=== PATIENT | female | born 1955 | race African-American/Black ===

== ENCOUNTER 2020-07-09 15:28 | Emergency (ER) | payer SELFPAY ==
--- OUTSIDE RECORDS SUMMARY | 2020-07-09 15:30 | XMS REPORT | Continuity of Care Document ---
:1955 Author Organization [facility] t Address [address] [place] [address] Care Team Providers Name Role Phone Gopal Myers DO Attending Clinician Deedee Antoine MD Attending Clinician Problems This patient has no known problems. Allergies, Adverse Reactions, Alerts This patient has no known allergies or adverse reactions. Medications This patient has no known medications. Procedures This patient has no known procedures. Encounters Start End Encounter Admission Attending Care Care Encounter Source Date/Time Date/Time Type Type Clinicians Facility Department ID 2020-06-09 2020-06-09 Patient Louis [facility] [id number] 00:00:00 00:00:00 Outreach Gopal MCGRAW [id number] Yon [facility] [id number] [facility] [id number] 2020-04-07 2020-04-07 Telephone REMA Antoine [id number] 00:00:00 00:00:00 [facility] [id number] [facility] [id number] 2020-03-27 2020-03-27 Case DENICE Antoine [id number] 00:00:00 00:00:00 [facility] [id number] Professio [phone] [address] [address] 2020-03-25 2020-03-25 Refill DENICE Antoine [id number] 00:00:00 00:00:00 [facility] [id number] [place] [id number] Professio [phone] [address] 2020-03-21 2020-03-21 Office DENICE Antoine [id number] 12:53:01 13:33:36 Visit [facility] [id number] [place] [id number] Professio [phone] [place] [id number] [address] Results This patient has no known results.
--- NOTE | 2020-07-09 16:40 | ER ---
Nurse's Notes [facility] Name: Matthew Locke Age: 65 yrs Sex: Female : 1955 Arrival Date: 07/09/2020 Time: 15:28 Bed Waiting Private MD: Diagnosis: Presentation: 07/09 15:32 Chief complaint: Patient states: Been having this panic attacks for a week now. Been ca1 having them since my daughter on 06/27/2020 but it has been getting worse and worse since I buried her. Been cleaning her apartment today. With the attacks, I get SOB, my heart racing, a little dizzy, and nauseous. Denies chest pain. Coronavirus screen: Client denies travel out of the [place] in the last 14 days. At this time, the client does not indicate any symptoms associated with coronavirus-19. Ebola Screen: Patient negative for fever greater than or equal to 101.5 degrees Fahrenheit, and additional compatible Ebola Virus Disease symptoms Patient denies exposure to infectious person. Patient denies travel to an Ebola-affected area in the 21 days before illness onset. No symptoms or risks identified at this time. Initial Sepsis Screen: Does the patient meet any 2 criteria? No. Patient's initial sepsis screen is negative. Does the patient have a suspected source of infection? No. Patient's initial sepsis screen is negative. Risk Assessment: Do you want to hurt yourself or someone else? Patient reports no desire to harm self or others. Onset of symptoms was July 09, 2020. 15:32 Method Of Arrival: Ambulatory ca1 15:32 Acuity: YOSEF 3 ca1 Historical: - Allergies: 15:41 No Known Allergies; ca1 - Home Meds: 15:41 None [Active]; ca1 - PMHx: 15:41 Hypertension; ca1 - PSHx: 15:41 None; ca1 - Immunization history:: Flu vaccine is not up to date. - Social history:: Smoking status: Patient denies any tobacco usage or history of. Assessment: 16:39 Reassessment: Pt states, " I am just going, I know this is just anxiety. This happened ca1 too 18 years ago when my . I got a doctor's appointment Tuesday". Vital Signs: 15:32 BP 183 / 83; Pulse 96; Resp 18 S; Temp 97.6(TE); Pulse Ox 99% on R/A; Weight 81.65 kg ca1 (R); Height 5 ft. 1 in. (154.94 cm) (R); Pain 0/10; 15:32 Body Mass Index 34.01 (81.65 kg, 154.94 cm) ca1 ED Course: 15:28 Patient arrived in ED. as 15:40 Triage completed. ca1 15:41 Arm band placed on right wrist. ca1 Administered Medications: No medications were administered Outcome: 16:40 Patient left the ED. ca1 Signatures: Mikayla Marino Cheryl RN RN ca1 Corrections: (The following items were deleted from the chart) 15:41 15:32 Chief complaint: Patient states: Been having this panic attacks for a week now. ca1 Been having them since my daughter on 06/27/2020 but it has been getting worse and worse since I buried her. Been cleaning her apartment today. With the attacks, I get SOB, my heart racing, a little dizzy, and nauseous. ca1
[2020-07-09 16:44] VITALS: BP 183/83; TEMP 97.6; O2SAT 99
== END 2020-07-09 16:40 | disposition left against medical advice (07) ==
LOC: ER 15:28
DX: Z02.9 Encounter for administrative examinations, unspecified (principal)
CPT/HCPCS: 99281

== ENCOUNTER 2024-06-13 01:32 | Emergency (ER) | payer OTHER, SELFPAY ==
[2024-06-13 02:11] LABS: Absolute Basophils 0.1 K/uL (0-0.5); Absolute Eosinophils 0.2 K/uL (0-0.5); Absolute Lymphocytes (CBC) 3.1 K/uL (0.7-4.9); Absolute Monocytes 0.5 K/uL (0.1-1.3); Absolute Neutrophil 1.9 K/uL (1.8-8.0); Basophils % 1.1 % (0-1.3); Eosinophils % 3.2 % (0-4.4); Hemoglobin 13.3 g/dL (12.0-15.0); Lymphocytes % 53.3 % (15.3-44.8); MCH 25.7 pg (27.0-35.0); MCHC 32.5 g/dL (32.0-36.0); MCV 79.3 fL (80-100); MPV 7.3 fL (7.6-11.3); Monocytes % 9.3 % (3.3-12.3); Neutrophils % 33.1 % (41.7-73.7); Nucleated Red Blood Cells % 0.1 % (0-0); Platelets 321 thou/uL (152-406); RBC Red Blood Cell Count 5.17 M/uL (3.86-4.86); Red Cell Distribution Width 15.5 % (12.1-15.2)
[2024-06-13 02:20] LABS: Protime INR 0.96
[2024-06-13 02:27] LABS: ALT/SGPT 34 U/L (13-56); AST/SGOT 18 U/L (15-37); Albumin 3.3 g/dL (3.4-5.0); Albumin/Globulin Ratio 0.7 (1.1-1.8); Alkaline Phosphatase 120 U/L (45-117); Anion Gap 7.7 mEq/L (5.0-15.0); BUN Blood Urea Nitrogen 19 mg/dL (7-18); Bicarbonate 27 mEq/L (21-32); Bilirubin Total 0.3 mg/dL (0.2-1.0); Globulin 4.9 g/dL (2.3-3.5); Glomerular Filtration Rate 64 ml/min (=/>90); Glucose Level 107 mg/dL (74-106); Magnesium 2.2 mg/dL (1.6-2.4); NT PRO-BNP 106 pg/mL (<125); Potassium 3.7 mEq/L (3.5-5.1); Protein, Total 8.2 g/dL (6.4-8.2); Sodium Level 139 mEq/L (136-145)
[2024-06-13 02:31] LABS: Bilirubin Direct < 0.2 mg/dL (0-0.2); Bilirubin Indirect, Calculated 0.1 mg/dL (0.2-0.8)
--- NOTE | 2024-06-13 05:00 | EDPHYS ---
Physician Documentation [facility] Name: Matthew Locke Age: 69 yrs Sex: Female : 1955 Arrival Date: 06/13/2024 Time: 01:32 Bed 4 Private MD: ED Physician Wilson Vidal HPI: 06/13 01:45 This 69 yrs old Black Female presents to ER via Unassigned with complaints of Irregular sp4 Pulse. 06/14 00:35 Patient presents with several days of palpitations.. sp4 Historical: - Allergies: 06/13 01:54 No Known Allergies; br2 - PMHx: 01:54 Hypertension; br2 - Immunization history:: Adult Immunizations not up to date. - Infectious Disease History:: Denies. - Social history:: Smoking status: Patient denies any tobacco usage or history of. - Family history:: not pertinent. ROS: 06/14 00:35 Constitutional: Negative for fever, chills, and weight loss, positive palpitations and sp4 irregular heart rate. All other systems are negative, Exam: 00:35 Constitutional: This is a well developed, well nourished patient who is awake, alert, sp4 and in no acute distress. Head/Face: Normocephalic, atraumatic. Eyes: Pupils equal round and reactive to light, extra-ocular motions intact. Lids and lashes normal. Conjunctiva and sclera are not injected. Cornea within normal limits. Periorbital areas with no swelling, redness, or edema. ENT: Nares patent. No nasal discharge, no septal abnormalities noted. Tympanic membranes are normal and external auditory canals are clear. Oropharynx with no redness, swelling, or masses, exudates, or evidence of obstruction, uvula midline. Mucous membranes moist. Neck: Trachea midline, no thyromegaly or masses palpated, and no cervical lymphadenopathy. Supple, full range of motion without nuchal rigidity, or vertebral point tenderness. Chest/axilla: Normal chest wall appearance and motion. Nontender with no deformity. No lesions are appreciated. Cardiovascular: Regular rate and rhythm with a normal S1 and S2. No gallops, murmurs, or rubs. Normal PMI, no JVD. No pulse deficits. Respiratory: Lungs have equal breath sounds bilaterally, clear to auscultation and percussion. No rales, rhonchi or wheezes noted. No increased work of breathing, no retractions or nasal flaring. Abdomen/GI: Soft, with normal bowel sounds. No distension or tympany. No guarding or rebound. No evidence of tenderness throughout. Back: No spinal tenderness. No costovertebral tenderness. Skin: Warm, dry with normal turgor. Normal color with no rashes, no lesions, and no evidence of cellulitis. MS/ Extremity: Pulses equal, no cyanosis. Neurovascular intact. Full, normal range of motion. Neuro: Awake and alert, GCS 15, oriented to person, place, time, and situation. Cranial nerves II-XII grossly intact. Motor strength 5/5 in all extremities. Sensory grossly intact. Psych: Awake, alert, with orientation to person, place and time. Behavior, mood, and affect are within normal limits 00:35 ECG was reviewed by the Attending Physician. Premature atrial contractions otherwise normal Vital Signs: 06/13 01:52 BP 158 / 97; Pulse 84; Resp 18; Temp 97.3(TE); Pulse Ox 100% on R/A; Weight 81.65 kg; br2 Height 5 ft. 1 in. ; Pain 7/10; 02:00 BP 153 / 90; Pulse 91; Resp 16; Pulse Ox 99% on R/A; dd2 02:30 BP 148 / 84; Pulse 78; Resp 16; Pulse Ox 100% on R/A; dd2 03:00 BP 148 / 85; Pulse 84; Resp 17; Pulse Ox 99% on R/A; dd2 04:00 BP 165 / 97; Pulse 78; Resp 16; Pulse Ox 98% on R/A; dd2 01:52 Body Mass Index 34.01 (81.65 kg, 154.94 cm) br2 01:52 Pain Scale: Adult br2 Abdias Coma Score: 06/14 00:35 Eye Response: spontaneous(4). Motor Response: obeys commands(6). Verbal Response: sp4 oriented(5). Total: 15. MDM: 06/13 02:15 Medical Screening Exam initiated sp4 06/14 00:37 Differential diagnosis: arrythmia, dehydration, stress disorder. Data reviewed: vital sp4 signs, nurses notes, lab test result(s), EKG, radiologic studies, plain films. Consideration of Admission/Observation Escalation of care including admission/observation considered. ED course: Stable for discharge home workup today is unremarkable except for premature atrial contractions. Advised follow-up with crane follower.. 06/13 01:45 Order name: Basic Metabolic Panel; Complete Time: 04:48 sp4 06/13 01:45 Order name: CBC with Diff; Complete Time: 04:48 sp4 06/13 01:45 Order name: LFT's; Complete Time: 04:48 sp4 06/13 01:45 Order name: Magnesium; Complete Time: 04:48 sp4 06/13 01:45 Order name: NT PRO-BNP; Complete Time: 04:48 sp4 06/13 01:45 Order name: PT-INR; Complete Time: 04:48 sp4 06/13 01:45 Order name: Troponin HS; Complete Time: 04:48 sp4 06/13 01:45 Order name: XRAY Chest (1 view) 4 06/13 01:45 Order name: Cardiac monitoring; Complete Time: 58 sp4 06/13 01:45 Order name: EKG - Nurse/Tech; Complete Time: 58 sp4 06/13 01:45 Order name: IV Saline Lock; Complete Time: :58 sp4 06/13 01:45 Order name: Labs collected and sent; Complete Time: 58 sp4 06/13 01:45 Order name: O2 Per Protocol; Complete Time: 58 sp4 06/13 01:45 Order name: O2 Sat Monitoring; Complete Time: :58 4 EC/12 01:52 Rate is 70 beats/min. Rhythm is irregular, Normal Sinus Rhythm with PACs. QRS [place] is sp4 Normal. DC interval is normal. QRS interval is normal. QT interval is normal. No Q waves. T waves are Normal. No ST changes noted. Clinical impression: No evidence of ischemia. Interpreted by me. Reviewed by me. Administered Medications: No medications were administered Disposition: 06/14 00:38 Chart complete. sp4 Disposition Summary: 06/13/24 05:00 Discharge Ordered Notes: Location: Home sp4 Problem: new sp4 Symptoms: have improved sp4 Condition: Stable sp4 Diagnosis - Palpitations sp4 - Premature atrial contractions sp4 Followup: sp4 - With: Private Physician - When: 5 - 6 days - Reason: Recheck today's complaints Discharge Instructions: - Discharge Summary Sheet sp4 - Palpitations, [id number] sp4 Forms: - Patient Portal Instructions sp4 Signatures: Dispatcher [employer] Wilson Agustin MD MD sp4 Jessica Allison RN RN br2 Corrections: (The following items were deleted from the chart) 06/13 01:46 01:46 BASIC METABOLIC PANEL+C.LAB.BRZ ordered. EDMS EDMS 01:46 01:46 CBC+H.LAB.BRZ ordered. EDMS EDMS 01:46 01:46 HEPATIC FUNCTION+C.LAB.BRZ ordered. EDMS EDMS 01:46 01:46 MAGNESIUM+C.LAB.BRZ ordered. EDMS EDMS 01:46 01:46 PROBNP+C.LAB.BRZ ordered. EDMS EDMS 01:46 01:46 PROTIME (+INR)+COAG.LAB.BRZ ordered. EDMS EDMS 01:46 01:46 Troponin High Sensitivity+C.LAB.BRZ ordered. EDMS EDMS 01:46 01:46 Chest Single View+RAD.RAD.BRZ ordered. EDMS EDMS
--- NOTE | 2024-06-13 05:00 | ER ---
Nurse's Notes [facility] Name: Matthew Locke Age: 69 yrs Sex: Female : 1955 Arrival Date: 06/13/2024 Time: 01:32 Bed 4 Private MD: Diagnosis: Palpitations;Premature atrial contractions Presentation: 06/13 01:52 Chief complaint: Patient states: PT STATES HER "A-FIB" IS ACTING UP, CAN FEEL A br2 FLUTTER. C/O SOB AND NAUSEA FOR 2 DAYS. Coronavirus screen: Client denies travel out of the [place] in the last 14 days. Ebola Screen: Patient denies exposure to infectious person. Initial Sepsis Screen: Does the patient meet any 2 criteria? No. Patient's initial sepsis screen is negative. Does the patient have a suspected source of infection? No. Patient's initial sepsis screen is negative. Risk Assessment: Do you want to hurt yourself or someone else? Patient reports no desire to harm self or others. Onset of symptoms was June 11, 2024. 01:52 Method Of Arrival: Ambulatory br2 01:52 Acuity: YOSEF 3 br2 Triage Assessment: 01:54 General: Appears in no apparent distress. comfortable, Behavior is calm, cooperative. br2 Pain: Complains of pain in chest Pain currently is 7 out of 10 on a pain scale. Cardiovascular: Reports nausea, palpitations, shortness of breath. Respiratory: Reports shortness of breath at rest on exertion. GI: No signs and/or symptoms were reported involving the gastrointestinal system. : No signs and/or symptoms were reported regarding the genitourinary system. Derm: No signs and/or symptoms reported regarding the dermatologic system. Musculoskeletal: No signs and/or symptoms reported regarding the musculoskeletal system. Historical: - Allergies: 01:54 No Known Allergies; br2 - PMHx: 01:54 Hypertension; br2 - Immunization history:: Adult Immunizations not up to date. - Infectious Disease History:: Denies. - Social history:: Smoking status: Patient denies any tobacco usage or history of. - Family history:: not pertinent. Screenin:00 [facility] ED Fall Risk Assessment (Adult) History of falling in the last 3 months, al5 including since admission No falls in past 3 months (0 pts) Confusion or Disorientation No (0 pts) Intoxicated or Sedated No (0 pts) Impaired Gait No (0 pts) Mobility Assist Device Used No (0 pt) Altered Elimination No (0 pt) Score/Fall Risk Level 0 - 2 = Low Risk Oriented to surroundings, Maintained a safe environment, Hourly rounding (assess needs \\T\\ fall precautionary measures) done. Abuse screen: Denies threats or abuse. Denies injuries from another. Nutritional screening: No deficits noted. Tuberculosis screening: No symptoms or risk factors identified. Assessment: 02:00 General: Appears in no apparent distress. comfortable, Behavior is calm, cooperative. al5 Pain: Complains of pain in chest Pain does not radiate. Pain began 2-3 days ago. Neuro: Level of Consciousness is awake, alert, obeys commands, Oriented to person, place, time, situation. Cardiovascular: Capillary refill < 3 seconds Patient's skin is warm and dry. Cardiovascular: Reports palpitations. Respiratory: Airway is patent Respiratory effort is even, unlabored, Respiratory pattern is regular, symmetrical. GI: No signs and/or symptoms were reported involving the gastrointestinal system. : No signs and/or symptoms were reported regarding the genitourinary system. EENT: No signs and/or symptoms were reported regarding the EENT system. Derm: Skin is intact, is healthy with good turgor, Skin is pink, warm \\T\\ dry. normal. Musculoskeletal: No signs and/or symptoms reported regarding the musculoskeletal system. 03:37 Reassessment: Patient appears in no apparent distress at this time. No changes from al5 previously documented assessment. Patient and/or family updated on plan of care and expected duration. Pain level reassessed. Patient is alert, oriented x 3, equal unlabored respirations, skin warm/dry/pink. Vital Signs: 01:52 BP 158 / 97; Pulse 84; Resp 18; Temp 97.3(TE); Pulse Ox 100% on R/A; Weight 81.65 kg; br2 Height 5 ft. 1 in. ; Pain 7/10; 02:00 BP 153 / 90; Pulse 91; Resp 16; Pulse Ox 99% on R/A; dd2 02:30 BP 148 / 84; Pulse 78; Resp 16; Pulse Ox 100% on R/A; dd2 03:00 BP 148 / 85; Pulse 84; Resp 17; Pulse Ox 99% on R/A; dd2 04:00 BP 165 / 97; Pulse 78; Resp 16; Pulse Ox 98% on R/A; dd2 01:52 Body Mass Index 34.01 (81.65 kg, 154.94 cm) br2 01:52 Pain Scale: Adult br2 [place] Coma Score: 06/14 00:35 Eye Response: spontaneous(4). Motor Response: obeys commands(6). Verbal Response: sp4 oriented(5). Total: 15. ED Course: 06/13 01:35 Patient arrived in ED. jj6 01:45 Wilson Vidal MD is Attending Physician. sp4 01:54 Triage completed. br2 01:54 Arm band placed on right wrist. br2 02:00 Patient has correct armband on for positive identification. Bed in low position. Call al5 light in reach. Side rails up X2. Provided Education on: plan of care. Client placed on continuous cardiac and pulse oximetry monitoring. NIBP monitoring applied. bed operator on. 02:00 No provider procedures requiring assistance completed. Inserted saline lock: 22 gauge al5 in right antecubital area, using aseptic technique. Blood collected. Flushed with 10 mL NS. 02:00 Patient maintains SpO2 saturation greater than 95% on room air. al5 02:10 XRAY Chest (1 view) In Process Unspecified. EDMS 03:03 Mary Chilel, RN is Primary Nurse. al5 05:14 IV discontinued, intact, bleeding controlled, No redness/swelling at site. Pressure dd2 dressing applied. Administered Medications: No medications were administered Medication: 03:04 VIS not applicable for this client. al5 Outcome: 05:00 Discharge ordered by . sp4 05:14 Discharged to home ambulatory, dd2 05:14 Condition: stable 05:14 Discharge instructions given to patient, Instructed on discharge instructions, follow up and referral plans. Demonstrated understanding of instructions, follow-up care, 05:15 Patient left the ED. dd2 Signatures: Dispatcher [employer] EDMS Lauren Shazia jj6 Wilsno Vidal MD MD sp4 Langhorst, Amanda RN KATHLEEN al5 Jessica Allison RN RN br2 GLORIA ARANGO RN RN dd2 Corrections: (The following items were deleted from the chart) 03:05 03:04 [facility] ED Fall Risk Assessment (Adult) History of falling in the last 3 months, al5 including since admission No falls in past 3 months (0 pts) Confusion or Disorientation No (0 pts) Intoxicated or Sedated No (0 pts) Impaired Gait No (0 pts) Mobility Assist Device Used No (0 pt) Altered Elimination No (0 pt) Score/Fall Risk Level 0 - 2 = Low Risk Oriented to surroundings, Maintained a safe environment, Hourly rounding (assess needs \\T\\ fall precautionary measures) done, al5 03:05 03:04 Abuse screen: Denies threats or abuse. Denies injuries from another. al5 al5 03:05 03:04 Nutritional screening: No deficits noted. al5 al5 03:05 03:04 Tuberculosis screening: No symptoms or risk factors identified. al5 al5 03:06 03:05 Patient has correct armband on for positive identification. Bed in low position. al5 Call light in reach. Side rails up X2. al5 03:06 03:05 Provided Education on: plan of care. al5 al5 03:06 03:05 Client placed on continuous cardiac and pulse oximetry monitoring. NIBP al5 monitoring applied. bed operator on. al5
[2024-06-13 05:26] VITALS: TEMP 97.3
[2024-06-13 05:30] VITALS: BP 165/97; O2SAT 98
--- NOTE | 2024-06-13 06:02 | RAD REPORT ---
PROCEDURE: XR Chest, 1 View CLINICAL INDICATION: The patient is 69 years old and is Female; Chest pain. TECHNIQUE: Frontal view of the chest. COMPARISON: XR Chest 06/12/2024. FINDINGS: LUNGS: No discrete focal consolidation. PLEURAL SPACE: No appreciable pleural effusion or pneumothorax. MEDIASTINUM: Stable cardiomediastinal silhouette. BONES/JOINTS: No acute osseous abnormality. IMPRESSION: No acute cardiopulmonary abnormality. Electronically signed by: Garfield Menon MD 06/13/2024 03:07 AM CDT Due to temporary technical issues with the PACS/TRiQ reporting system, reports are being albaro d by the in-house radiologist without review as a courtesy to ensure prompt reporting the interpreting radiologist is fully responsible for the content of the report. Transcribed Date/Time: 06/13/2024 6:02 AM
--- NOTE | 2024-06-15 14:49 | EKG ---
Test Date: 2024-06-13 Test Time: 01:54:33 Hand Packer: SETH MEASUREMENT RESULTS: Intervals: Rate: 90 RI: 180 QRSD: 82 QT: 382 QTc: 467 [place]: P: 61 RI: 180 QRS: 23 T: 49 INTERPRETIVE STATEMENTS: Sinus rhythm with blocked premature atrial complexes Otherwise normal ECG No previous ECG available for comparison Electronically Signed On 06-15-24 14:43:06 CDT by Escobar Watkins
== END 2024-06-13 05:15 | disposition home or self-care (01) ==
LOC: ER 01:32
DX: I49.1 Atrial premature depolarization (principal); I10 Essential (primary) hypertension
CPT/HCPCS: 36415; 71045; 80048; 80076; 83735; 83880; 84484; 85025; 85610; 93005; 99284